=== PATIENT | male | born 2000 | race Caucasian/White ===

== ENCOUNTER 2022-08-16 08:00 | Outpatient (CLI) | payer OTHER ==
--- NOTE | 2022-08-16 17:27 | XRAY Report ---
PROCEDURE: Ribs w/PA Chest LT INDICATIONS: THORACIC BACK/RIB PX TECHNIQUE: 3 views of the left ribs were acquired, along with a single view chest. COMPARISON: None FINDINGS: Surgical changes and devices: None. Bones and chest wall: No fractures or dislocations. No suspicious bony lesions. Overlying soft tis sues appear unremarkable. Lungs and pleura: No pleural effusions or pneumothorax. Lungs appear clear. Mediastinum: Mediastinal contours appear normal. Heart size is normal. IMPRESSION: Normal left ribs and PA view of the chest. Reviewed by: Jai Francis on 08/16/2022 5:26 PM PST Approved by: Jai Francis on 08/16/2022 5:26 PM PST Station ID: [id number]
== END 2022-08-16 23:59 | disposition home or self-care (01) ==
LOC: DI.N 08:00
PROVIDERS: ATTEND Physician Assistant
DX: M54.6 Pain in thoracic spine (principal)